=== PATIENT | female | born 1955 | race Caucasian/White ===

== ENCOUNTER 2019-01-11 10:57 | Inpatient (IN) | payer OTHER ==
[2019-01-11 12:55] VITALS: BMI 29.5
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
[2019-01-11] MEDS ORDERED: PROCHLORPERAZINE MALEATE 5 MG TABLET PO PRN (15:17)
[2019-01-11] MEDS ORDERED: MAGNESIUM CITRATE 300 ML BOTTLE PO PRN (15:17)
[2019-01-11] MEDS ORDERED: cloNIDine HCL 0.1 MG TABLET PO PRN (15:17)
[2019-01-11] MEDS ORDERED: MAGNESIUM HYDROX 2400MG/30ML ORAL SUSPENSION 30 ML CUP PO PRN (15:17)
[2019-01-11] MEDS ORDERED: DICYCLOMINE HCL 10 MG CAPSULE PO PRN (15:17)
[2019-01-11] MEDS ORDERED: MAG HYDROX/AL HYDROX/SIMETH 30 ML UNIT-DOSE CUP PO PRN (15:17)
[2019-01-11] MEDS ORDERED: IBUPROFEN 400 MG TABLET (FP) PO PRN (15:17)
[2019-01-11] MEDS ORDERED: MENTHOL/PHENOL 1 EACH UD MM PRN (15:17)
[2019-01-11] MEDS ORDERED: METHADONE HCL 10 MG TABLET (FOR DETOX USE ONLY) PO ONE (16:30)
[2019-01-11] MEDS ORDERED: diazePAM 5 MG TABLET PO ONE (16:30)
[2019-01-11] MEDS ORDERED: METOCLOPRAMIDE HCL PO SCH (18:00)
[2019-01-11] MEDS: METHOCARBAMOL 500 MG TABLET PO PRN (22:18)
[2019-01-11] MEDS: diazePAM 5 MG TABLET PO SCH (22:19)
[2019-01-11] MEDS: THIAMINE HCL 100 MG TABLET (FP) PO SCH (22:20)
[2019-01-12] MEDS: hydrOXYzine PAMOATE 25 MG CAPSULE (FP) PO PRN ×2 (04:43→17:36)
[2019-01-12] MEDS: diazePAM 5 MG TABLET PO SCH ×3 (05:41→22:10)
[2019-01-12] MEDS ORDERED: BUPROPION HCL 75 MG PO SCH (10:00)
[2019-01-12] MEDS ORDERED: PATIENT'S OWN MEDICATION (NON-FORMULARY) (Calcium Carbonate/Vitamin D3 [Calcium 500-Vit D3 PO SCH (10:00)
[2019-01-12] MEDS ORDERED: METHADONE HCL 5 MG TABLET (FOR DETOX USE ONLY) PO ONE ×2 (10:00→12:35)
[2019-01-12] MEDS ORDERED: PATIENT'S OWN MEDICATION (NON-FORMULARY) (Biotin [Biotin] 5,000 MCG) PO SCH (10:00)
[2019-01-12] MEDS ORDERED: amLODIPine BESYLATE 2.5 MG TABLET (FP) PO SCH (10:00)
[2019-01-12 10:20] LABS: HEMATOCRIT 39.4 % (32.4-45.2); HEMOGLOBIN 13.4 GM/dL (10.7-15.3); MCHC 34.1 g/dl (32.0-36.0); MEAN CELL VOLUME 90.7 fl (80-96); MEAN PLT VOLUME 9.6 fl (7.5-11.1); PLATELET COUNT 288 K/MM3 (134-434); RBC 4.35 M/mm3 (3.60-5.2); RDW 13.2 % (11.6-15.6)
[2019-01-12] MEDS ORDERED: CALCIUM CARBONATE 650 MG TABLET PO SCH (10:30)
[2019-01-12] MEDS: PRENATAL VITAMINS W/ FOLIC ACID TABLET (FP) PO SCH (10:34)
[2019-01-12] MEDS: AMLODIPINE BESYLATE 2.5 MG PO SCH (10:34)
[2019-01-12 10:35] LABS: ALBUMIN 3.4 g/dl (3.4-5.0); BILIRUBIN,TOTAL 0.6 mg/dL (0.2-1); CALCIUM 9.1 mg/dL (8.5-10.1); CREATININE 0.7 mg/dL (0.55-1.3); POTASSIUM 3.8 mmol/L (3.5-5.1); TOT PROT 6.3 g/dl (6.4-8.2)
[2019-01-12] MEDS: CHOLECALCIFEROL (VIT D3) 400 UNIT (10 MCG) TABLET PO SCH (11:00)
--- NOTE | 2019-01-12 11:35 | PN ---
BHS COWS - Scale Resting Pulse: 0= [place] 80 or Below Sweatin=Flushed/Facial Moisture Restless Observation: 3= Extraneous Movement Pupil Size: 0= Normal to Room Light Bone or Joint Aches: 2= Severe Diffuse Aches Runny Nose/ Eye Tearin= Nasal Congestion GI Upset > 30mins: 1= Stomach Cramp Tremor Observation of Outstretched Hands: 2= Slight Tremor Visible Yawning Observation: 1= 1-2x During Session Anxiety or Irritability: 2=Irritable/Anxious Goose Flesh Skin: 3=Piloerection COWS Score: 17 BHS Progress Note (SOAP) Subjective: anxiety restless agitation body aches sweats shakes Objective: 01/12/19 11:33 Vital Signs Temperature 98.1 F 01/12/19 09:37 Pulse Rate 53 L 01/12/19 09:37 Respiratory Rate 17 01/12/19 09:37 Blood Pressure 103/63 01/12/19 09:37 O2 Sat by Pulse Oximetry (%) Laboratory Tests 01/11/19 01/12/19 01/12/19 13:54 07:40 07:40 WBC 6.0 RBC 4.35 Hgb 13.4 Hct 39.4 MCV 90.7 MCH 31.0 MCHC 34.1 RDW 13.2 Plt Count 288 MPV 9.6 Sodium 141 Potassium 3.8 Chloride 106 Carbon Dioxide 28 Anion Gap 6 L BUN 11 Creatinine 0.7 Est GFR (CKD-EPI)AfAm 108.38 Est GFR (CKD-EPI)NonAf 93.51 Random Glucose 89 Calcium 9.1 Total Bilirubin 0.6 AST 9 L ALT 17 Alkaline Phosphatase 82 Total Protein 6.3 L Albumin 3.4 POC Urine HCG, Qual Negative rest of labs pending aaox3 ambulating/restless no acute distress Assessment: 01/12/19 11:34 withdrawals Plan: continue with new methadone modification done; pt in agreement with revised dose increase fluids
[2019-01-12] MEDS: PATIENT'S OWN MEDICATION (NON-FORMULARY) (Omeprazole [Omeprazole] 40 MG) PO SCH ×3 (11:51→22:10)
[2019-01-12] MEDS: BUPROPION HCL 75 MG PO SCH (11:51)
[2019-01-12] MEDS: ARIPIPRAZOLE 5 MG PO SCH (11:52)
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
[2019-01-12] MEDS: CALCIUM 250MG/VIT-D 125 UNITS 1 COMBO TABLET PO SCH (13:01)
[2019-01-12] MEDS: ONDANSETRON *ODT* 4 MG TABLET SL PRN (17:37)
[2019-01-12] MEDS: METHOCARBAMOL 500 MG TABLET PO PRN (17:37)
[2019-01-12] MEDS: THIAMINE HCL 100 MG TABLET (FP) PO SCH (22:10)
[2019-01-12] MEDS: MELATONIN 5 MG TABLETS PO PRN (22:11)
[2019-01-13] MEDS: diazePAM 5 MG TABLET PO PRN (04:41)
[2019-01-13] MEDS: ONDANSETRON *ODT* 4 MG TABLET SL PRN ×2 (09:09→15:33)
--- NOTE | 2019-01-13 09:50 | PN ---
S COWS - Scale Resting Pulse: 0= [place] 80 or Below Sweatin= Chills/Flushing Restless Observation: 1= Difficult to Sit Still Pupil Size: 0= Normal to Room Light Bone or Joint Aches: 4=Acute Joint/Muscle Pain Runny Nose/ Eye Tearin= None GI Upset > 30mins: 0= None Tremor Observation of Outstretched Hands: 1= Tremor [place], Not Seen Yawning Observation: 1= 1-2x During Session Anxiety or Irritability: 2=Irritable/Anxious Goose Flesh Skin: 0=Smooth Skin COWS Score: 10 S Progress Note (SOAP) Subjective: c/o sweats, irritability, headache, mild tremor, and muscle pain. Objective: 01/13/19 09:48 Vital Signs 01/13/19 01/13/19 03:30 08:08 Temperature 97.7 F Pulse Rate 68 Respiratory 18 18 Rate Blood Pressure 111/67 Lab Results WBC 6.0 K/mm3 (4.0-10.0) 01/12/19 07:40 RBC 4.35 M/mm3 (3.60-5.2) 01/12/19 07:40 Hgb 13.4 GM/dL (10.7-15.3) 01/12/19 07:40 Hct 39.4 % (32.4-45.2) 01/12/19 07:40 MCV 90.7 fl (80-96) 01/12/19 07:40 MCHC 34.1 g/dl (32.0-36.0) 01/12/19 07:40 RDW 13.2 % (11.6-15.6) 01/12/19 07:40 Plt Count 288 K/MM3 (134-434) 01/12/19 07:40 Sodium 141 mmol/L (136-145) 01/12/19 07:40 Potassium 3.8 mmol/L (3.5-5.1) 01/12/19 07:40 Chloride 106 mmol/L (98-107) 01/12/19 07:40 Carbon Dioxide 28 mmol/L (21-32) 01/12/19 07:40 Anion Gap 6 MMOL/L (8-16) L 01/12/19 07:40 BUN 11 mg/dL (7-18) 01/12/19 07:40 Creatinine 0.7 mg/dL (0.55-1.3) 01/12/19 07:40 Random Glucose 89 mg/dL (74-106) 01/12/19 07:40 Calcium 9.1 mg/dL (8.5-10.1) 01/12/19 07:40 Labs noted. Assessment: 01/13/19 09:49 AOX3, in no acute distress full ROM, ambulating in the unit. withdrawal symptoms. 01/13/19 09:49 Plan: continue detox increase fluids
[2019-01-13] MEDS ORDERED: AMLODIPINE BESYLATE 2.5 MG PO SCH (10:00)
[2019-01-13] MEDS ORDERED: METHADONE HCL 10 MG TABLET (FOR DETOX USE ONLY) PO ONE ×2 (10:00)
[2019-01-13] MEDS: diazePAM 5 MG TABLET PO SCH ×2 (10:14→22:09)
[2019-01-13] MEDS: hydrOXYzine PAMOATE 25 MG CAPSULE (FP) PO PRN ×2 (10:14→17:58)
[2019-01-13] MEDS: CALCIUM 250MG/VIT-D 125 UNITS 1 COMBO TABLET PO SCH (10:14)
[2019-01-13] MEDS: PRENATAL VITAMINS W/ FOLIC ACID TABLET (FP) PO SCH (10:14)
[2019-01-13] MEDS: AMLODIPINE BESYLATE 2.5 MG PO SCH (10:14)
[2019-01-13] MEDS: ARIPIPRAZOLE 5 MG PO SCH (10:16)
[2019-01-13] MEDS: PATIENT'S OWN MEDICATION (NON-FORMULARY) (Omeprazole [Omeprazole] 40 MG) PO SCH ×2 (10:16→22:09)
[2019-01-13] MEDS: BUPROPION HCL 75 MG PO SCH (11:12)
[2019-01-13] MEDS: CHOLECALCIFEROL (VIT D3) 400 UNIT (10 MCG) TABLET PO SCH (11:29)
[2019-01-13] MEDS: THIAMINE HCL 100 MG TABLET (FP) PO SCH (22:10)
[2019-01-14] MEDS: ONDANSETRON *ODT* 4 MG TABLET SL PRN (04:16)
[2019-01-14] MEDS ORDERED: METHADONE HCL 5 MG TABLET (FOR DETOX USE ONLY) PO ONE (06:00)
[2019-01-14] MEDS ORDERED: diazePAM 5 MG TABLET PO SCH (06:00)
[2019-01-14] MEDS ORDERED: METHADONE HCL 10 MG TABLET (FOR DETOX USE ONLY) PO ONE (10:00)
[2019-01-14] MEDS: hydrOXYzine PAMOATE 25 MG CAPSULE (FP) PO PRN ×3 (10:14→22:12)
[2019-01-14] MEDS: PRENATAL VITAMINS W/ FOLIC ACID TABLET (FP) PO SCH (10:14)
[2019-01-14] MEDS: diazePAM 5 MG TABLET PO PRN (10:14)
[2019-01-14] MEDS: PATIENT'S OWN MEDICATION (NON-FORMULARY) (Omeprazole [Omeprazole] 40 MG) PO SCH ×2 (10:15→22:09)
[2019-01-14] MEDS: AMLODIPINE BESYLATE 2.5 MG PO SCH (10:15)
[2019-01-14] MEDS: BUPROPION HCL 75 MG PO SCH (10:16)
[2019-01-14] MEDS: CHOLECALCIFEROL (VIT D3) 400 UNIT (10 MCG) TABLET PO SCH (10:16)
[2019-01-14] MEDS: CALCIUM 250MG/VIT-D 125 UNITS 1 COMBO TABLET PO SCH (10:16)
[2019-01-14] MEDS: ARIPIPRAZOLE 5 MG PO SCH (10:16)
--- NOTE | 2019-01-14 12:39 | PN ---
BHS COWS - Scale Resting Pulse: 0= [place] 80 or Below Sweatin= Chills/Flushing Restless Observation: 1= Difficult to Sit Still Pupil Size: 0= Normal to Room Light Bone or Joint Aches: 1= Mild Discomfort Runny Nose/ Eye Tearin= Runny Nose/Eyes GI Upset > 30mins: 2= Nausea/Diarrhea Tremor Observation of Outstretched Hands: 2= Slight Tremor Visible Yawning Observation: 0= None Anxiety or Irritability: 2=Irritable/Anxious Goose Flesh Skin: 0=Smooth Skin COWS Score: 11 [facility] Progress Note (SOAP) Subjective: Headache 8/10, anxious, back pain, body ache Objective: 01/14/19 12:37 Last Vital Signs Temp Pulse Resp BP Pulse Ox 98.2 F 52 L 16 123/66 01/14/19 09:21 01/14/19 09:21 01/14/19 09:21 01/14/19 09:21 Laboratory Tests 01/11/19 01/12/19 01/12/19 13:54 07:40 07:40 WBC 6.0 RBC 4.35 Hgb 13.4 Hct 39.4 MCV 90.7 MCH 31.0 MCHC 34.1 RDW 13.2 Plt Count 288 MPV 9.6 Sodium 141 Potassium 3.8 Chloride 106 Carbon Dioxide 28 Anion Gap 6 L BUN 11 Creatinine 0.7 Est GFR (CKD-EPI)AfAm 108.38 Est GFR (CKD-EPI)NonAf 93.51 Random Glucose 89 Calcium 9.1 Total Bilirubin 0.6 AST 9 L ALT 17 Alkaline Phosphatase 82 Total Protein 6.3 L Albumin 3.4 POC Urine HCG, Qual Negative RPR Titer 01/12/19 07:40 WBC RBC Hgb Hct MCV MCH MCHC RDW Plt Count MPV Sodium Potassium Chloride Carbon Dioxide Anion Gap BUN Creatinine Est GFR (CKD-EPI)AfAm Est GFR (CKD-EPI)NonAf Random Glucose Calcium Total Bilirubin AST ALT Alkaline Phosphatase Total Protein Albumin POC Urine HCG, Qual RPR Titer Nonreactive Labs reviewed Assessment: 01/14/19 12:37 Withdrawal symptoms Plan: Continue detox Encouraged PO water intake
[2019-01-14] MEDS: METHOCARBAMOL 500 MG TABLET PO PRN ×2 (15:37→22:13)
[2019-01-14] MEDS: THIAMINE HCL 100 MG TABLET (FP) PO SCH (22:09)
[2019-01-14] MEDS: MELATONIN 5 MG TABLETS PO PRN (22:10)
[2019-01-14 22:15] VITALS: TEMP 97.7
[2019-01-15] MEDS: hydrOXYzine PAMOATE 25 MG CAPSULE (FP) PO PRN (05:57)
[2019-01-15] MEDS ORDERED: METHADONE HCL 5 MG TABLET (FOR DETOX USE ONLY) PO ONE (06:00)
[2019-01-15 07:25] VITALS: BP 104/71; PULSE 52
--- NOTE | 2019-01-15 09:05 | DS ---
[facility] Detox Discharge Summary Admission Date: 01/11/19 Discharge Date: 01/15/19 - History Present History: Cannabis Dependence, Opioid Dependence - Physical Exam Results Vital Signs: Vital Signs Temperature 97.7 F 01/15/19 07:24 Pulse Rate 52 L 01/15/19 07:24 Respiratory Rate 16 01/15/19 07:24 Blood Pressure 104/71 01/15/19 07:24 O2 Sat by Pulse Oximetry (%) - Treatment Hospital Course: Detox Protocol Followed, Detoxed Safely, Responded well, Discharged Condition Good, Rehab Referral Accepted - Medication Discharge Medications: Ambulatory Orders Amlodipine Besylate 2.5 mg PO DAILY 01/11/19 Aripiprazole 5 mg PO DAILY 01/11/19 Biotin 5,000 mcg PO DAILY 01/11/19 Bupropion HCl [Wellbutrin Xl] 75 mg PO DAILY 01/11/19 Calcium Carbonate/Vitamin D3 [Calcium 500-Vit D3 600 Tablet] 1 each PO DAILY Metoclopramide HCl [Reglan -] 10 mg PO QID 01/11/19 Olmesartan/Hydrochlorothiazide [Olmesartan-Hctz 20-12.5 mg Tab] 1 each PO DAILY 01/11/19 Omeprazole 40 mg PO BID 01/11/19 hydrOXYzine PAMOATE [Vistaril -] 25 mg PO DAILY PRN 7 Days #7 capsule 01/15/19 - Diagnosis (1) Bipolar disorder Current Visit: Yes Status: Chronic (2) Cannabis dependence Current Visit: Yes Status: Chronic (3) H/O bariatric surgery Current Visit: No Status: Acute (4) H/O hiatal hernia Current Visit: No Status: Acute (5) Insomnia Current Visit: No Status: Acute (6) Need for hepatitis C screening test Current Visit: No Status: Acute (7) Need for vaccination against hepatitis B virus Current Visit: No Status: Acute (8) BMI 45.0-49.9, adult Current Visit: No Status: Chronic (9) Hepatitis C Current Visit: Yes Status: Chronic Qualifiers: Viral hepatitis chronicity: chronic Hepatic coma status: without hepatic coma Qualified Code(s): B18.2 - Chronic viral hepatitis C (10) Hypertension Current Visit: No Status: Chronic - AMA Did Patient Leave Against Medical Advice: No (pt going to her outpatient program )
[2019-01-15] MEDS: BUPROPION HCL 75 MG PO SCH (09:25)
[2019-01-15] MEDS: AMLODIPINE BESYLATE 2.5 MG PO SCH (09:25)
[2019-01-15] MEDS: ARIPIPRAZOLE 5 MG PO SCH (09:25)
[2019-01-15] MEDS: PATIENT'S OWN MEDICATION (NON-FORMULARY) (Omeprazole [Omeprazole] 40 MG) PO SCH (09:25)
[2019-01-15] MEDS: CHOLECALCIFEROL (VIT D3) 400 UNIT (10 MCG) TABLET PO SCH (09:25)
[2019-01-15] MEDS: CALCIUM 250MG/VIT-D 125 UNITS 1 COMBO TABLET PO SCH (09:44)
[2019-01-15] MEDS: PRENATAL VITAMINS W/ FOLIC ACID TABLET (FP) PO SCH (09:44)
== END 2019-01-15 09:47 | disposition home or self-care (01) | DRG 773 ==
LOC: YASAS 10:57 → Y6N 15:34
PROVIDERS: ADMIT Surgery; ATTEND Surgery
PROC: HZ2ZZZZ Detoxification Services for Substance Abuse Treatment (ICD-10-PCS; principal; 2019-01-11)
DX: F11.23 Opioid dependence with withdrawal (principal); F12.20 Cannabis dependence, uncomplicated; I10 Essential (primary) hypertension; G47.00 Insomnia, unspecified; Z23 Encounter for immunization; Z11.59 Encounter for screening for other viral diseases; Z98.84 Bariatric surgery status; Z87.19 Personal history of other diseases of the digestive system
CPT/HCPCS: 36415; 80053; 81025; 85027; 86593; J0735; Q0162